=== PATIENT | female | born 1995 ===

== ENCOUNTER 2020-06-04 23:14 | Emergency (ER) | payer MEDICAID ==
[2020-06-05 00:38] VITALS: BP 131/87
[2020-06-05] MEDS ORDERED: CYCLOBENZAPRINE 10 MG TAB PO ONE (03:31)
[2020-06-05] MEDS ORDERED: ACETAMINOPHEN 500 MG TAB PO ONE (03:31)
[2020-06-05 04:38] LABS: Bacteria,Urine 1+ /HPF (Negative); Bilirubin,Urine NEG (Negative); Blood,Urine NEG (Negative); Calcium Oxalate Crystals,Urine 3+; Color,Urine Yellow (Yellow); Mucus,Urine 1+ /HPF; Protein,Urine <15 mg/dL mg/dL (Negative); Urobilinogen,Urine < 2.0 mg/dL (<2.0)
[2020-06-05 04:44] LABS: HCG Qualitative,Urine Negative (Negative)
--- NOTE | 2020-06-05 05:02 | Emergency Department Report ---
ED Back Pain/Injury HPI - General Chief Complaint: Back Pain/Injury Stated Complaint: BACK PAIN Source: patient Limitations: No Limitations - History of Present Illness Initial Comments: Patient is a 25-year-old female who presents to the ED with complaint of acute onset persistent low back pain for the last 1 month. Patient states that she was previously treated for UTI with Macrobid which she had been taking for over 1 month but that the pain has been persistent and constant. Patient states that she has been taking [id number] medications with no relief. Patient denies dysuria, urinary frequency and urgency, vaginal bleeding, vaginal discharge, traumatic injury, heavy lifting, fall, numbness and tingling or weakness of lower extremities bilaterally, fever, chills, cough, abdominal pain, urinary or bowel incontinence and saddle paresthesia. MD Complaint: back pain, other (left lateral lower back pain) -: Sudden, month(s) (1) Similar Symptoms Previously: Yes Place: home Radiation: none Severity: severe Severity scale (0 -10): 7 Quality: sharp, aching Consistency: constant Improves With: none Worsens With: movement, walking Context: unknown Associated Symptoms: denies other symptoms. denies: confusion, weakness, chest pain, numbness, difficulty walking, cough, difficulty urinating, diaphoresis, incontinence, fever/chills, constipation, abdominal pain, loss of appetite, malaise, nausea/vomiting, rash, seizure, shortness of breath, syncope Treatments Prior to Arrival: acetaminophen - Related Data Previous Rx's Medication Instructions Recorded Last Taken Type Naproxen 500 mg PO Q12H PRN #30 tablet 06/05/20 Unknown Rx cephALEXin [Keflex] 500 mg PO Q12HR #20 cap 06/05/20 Unknown Rx tiZANidine [Zanaflex 4mg TAB] 4 mg PO Q8H PRN #21 tablet 06/05/20 Unknown Rx traMADoL [Ultram] 50 mg PO Q6HR PRN #10 tablet 06/05/20 Unknown Rx Allergies Allergy/AdvReac Type Severity Reaction Status Date / Time No Known Allergies Allergy Unverified 06/05/20 00:37 ED Review of Systems ROS: Stated complaint: BACK PAIN Other details as noted in HPI Constitutional: denies: chills, fever Eyes: denies: eye pain, eye discharge, vision change ENT: denies: ear pain, throat pain Respiratory: denies: cough, shortness of breath, wheezing Cardiovascular: denies: chest pain, palpitations Endocrine: no symptoms reported Gastrointestinal: denies: abdominal pain, nausea, diarrhea Genitourinary: denies: urgency, dysuria, discharge Musculoskeletal: back pain (lower). denies: joint swelling, arthralgia Skin: denies: rash, lesions Neurological: denies: headache, weakness, paresthesias Psychiatric: denies: anxiety, depression Hematological/Lymphatic: denies: easy bleeding, easy bruising ED Past Medical Hx - Past Medical History Previous Medical History?: No - Surgical History Past Surgical History?: No - Social History Smoking Status: Never Smoker Substance Use Type: None - Medications Home Medications: Home Medications Medication Instructions Recorded Confirmed Last Taken Type Naproxen 500 mg PO Q12H PRN #30 tablet 06/05/20 Unknown Rx cephALEXin [Keflex] 500 mg PO Q12HR #20 cap 06/05/20 Unknown Rx tiZANidine [Zanaflex 4mg TAB] 4 mg PO Q8H PRN #21 tablet 06/05/20 Unknown Rx traMADoL [Ultram] 50 mg PO Q6HR PRN #10 tablet 06/05/20 Unknown Rx ED Physical Exam - General Limitations: No Limitations General appearance: alert, in no apparent distress - Head Head exam: Present: atraumatic, normocephalic, normal inspection - Eye Eye exam: Present: normal appearance, PERRL, EOMI Pupils: Present: normal accommodation - ENT ENT exam: Present: normal exam, normal orophraynx, mucous membranes moist, TM's normal bilaterally, normal external ear exam - Neck Neck exam: Present: normal inspection, full ROM - Respiratory Respiratory exam: Present: normal lung sounds bilaterally. Absent: respiratory distress, wheezes, rales, chest wall tenderness, accessory muscle use, prolonged expiratory - Cardiovascular Cardiovascular Exam: Present: regular rate, normal rhythm, normal heart sounds. Absent: systolic murmur, diastolic murmur, rubs, gallop - GI/Abdominal GI/Abdominal exam: Present: soft, normal bowel sounds. Absent: tenderness, guarding, rebound, hyperactive bowel sounds, hypoactive bowel sounds - Extremities Exam Extremities exam: Present: normal inspection, full ROM, normal capillary refill - Back Exam Back exam: Present: normal inspection, full ROM, tenderness (Palpable lumbosacral paraspinal musculoskeletal tenderness), muscle spasm, paraspinal tenderness. Absent: CVA tenderness (L), vertebral tenderness - Neurological Exam Neurological exam: Present: alert, oriented X3, CN II-XII intact, normal gait, reflexes normal - Psychiatric Psychiatric exam: Present: normal affect, normal mood - Skin Skin exam: Present: warm, dry, intact, normal color. Absent: rash ED Course Vital Signs 06/05/20 00:35 Temperature 97.9 F Pulse Rate 98 H Respiratory 17 Rate Blood Pressure 131/87 O2 Sat by Pulse 98 Oximetry ED Medical Decision Making - Medical Decision Making This is a 25-year-old female who presents to the ED with complaint of acute onset persistent low back pain for the last 1 month. Patient states that she was previously treated for UTI with Macrobid which she had been taking for over 1 month but that the pain has been persistent and constant. Patient states that she has been taking [id number] medications with no relief. In the ED, patient is alert and oriented x3 and is not in distress. Patient was treated for pain in the ED and urinalysis showed mild urinary tract infection. Patient was discharged home on pain medications and antibiotics and advised follow-up with her primary care physician in 7 to 10 days for reevaluation or return to the ED immediately if symptoms get worse. - Differential Diagnosis Muscle spasm; muscle strain; UTI; Critical care attestation.: If time is entered above; I have spent that time in minutes in the direct care of this critically ill patient, excluding procedure time. ED Disposition Clinical Impression: Spasm of muscle of lower back, Acute urinary tract infection Acute low back pain without sciatica Qualifiers: Back pain laterality: left Qualified Code(s): M54.5 - Low back pain Disposition: TO HOME OR SELFCARE Is pt being admited?: No Does the pt Need Aspirin: No Condition: Stable Instructions: Muscle Cramps and Spasms, [id number], Acute Back Pain, Adult, Urinary Tract Infection, Adult, [id number] Additional Instructions: Take medication with food, drink plenty of fluids and follow-up with your primary care physician in 7 to 10 days for reevaluation. Return to the ED immediately if symptoms get worse. Prescriptions: cephALEXin [Keflex] 500 mg PO Q12HR #20 cap Naproxen 500 mg PO Q12H PRN #30 tablet PRN Reason: Pain , Severe (7-10) traMADoL [Ultram] 50 mg PO Q6HR PRN #10 tablet PRN Reason: Pain tiZANidine [Zanaflex 4mg TAB] 4 mg PO Q8H PRN #21 tablet PRN Reason: Muscle Spasm Referrals: [facility] [Provider Group] - 3-5 Days Forms: Work/School Release Form(ED) Time of Disposition: 04:59 Print Language: [id number]
== END 2020-06-05 04:55 | disposition home or self-care (01) ==
LOC: ED 23:14
DX: N39.0 Urinary tract infection, site not specified (principal); M62.838 Other muscle spasm
CPT/HCPCS: 81001; 81025; 99283